=== PATIENT | female | born 1955 | race Caucasian/White ===

== ENCOUNTER 2016-12-28 06:45 | Day surgery (SDC) | payer BC ==
[~2016-12-28 06:45] MED LIST: Lactated Ringers 1,000 ML IV SCH; Lidocaine 1%/Sod Bicarbonate in NS 8.4% 1 ML Syringe IV PRN; Sodium Chloride 0.9% 10 ML Syringe FLUSH PRN
--- NOTE | 2016-12-28 07:12 | PCM.PREANE ---
Preanesthetic Assessment - Anesthesia/Transfusion/Family Hx Anesthesia History: Prior Anesthesia Without Reaction Family History of Anesthesia Reaction: No Transfusion History: No Prior Transfusion(s) - Review of Systems General: No Symptoms Pulmonary: No Symptoms Cardiovascular: No Symptoms Gastrointestinal: No symptoms Neurological: No Symptoms Other: Reports: None - Physical Assessment NPO Status Date: 12/27/16 NPO Status Time: 20:00 Pulse: 96 O2 Sat by Pulse Oximetry: 98 Respiratory Rate: 16 Blood Pressure: 158/89 Temperature: 36.6 C Height: 1.65 m Weight: 87.725 kg ASA Class: 2 Mental Status: Alert & Oriented x3 Airway Class: Mallampati = 1 Dentition: Reports: Normal Dentition Thyro-Mental Finger Breadths: 3 Mouth Opening Finger Breadths: 5 ROM/Head Extension: Full Lungs: Clear to auscultation, Normal respiratory effort Cardiovascular: Regular Rate, Regular Rhythm - Allergies Allergies/Adverse Reactions: Allergies Allergy/AdvReac Type Severity Reaction Status Date / Time codeine Allergy Chest Pain Verified 12/27/16 15:32 - Blood Blood Available: No - Acknowledgements Anesthesia Type Planned: General Anesthesia (patient expected in prone position ), MAC Pt an Appropriate Candidate for the Planned Anesthesia: Yes Alternatives and Risks of Anesthesia Discussed w Pt/Guardian: Yes Pt/Guardian Understands and Agrees with Anesthesia Plan: Yes PreAnesthesia Questionnaire HEENT History: Reports: Other (see below) Other HEENT History: wears glasses, has partial Cardiovascular History: Reports: None Respiratory History: Reports: None Gastrointestinal History: Reports: Hemorrhoids, Other (see below) Other Gastrointestinal History: rectal mass Genitourinary History: Reports: Renal calculus COUNSELOR AID History: Reports: None Musculoskeletal History: Reports: Back pain, chronic Neurological History: Reports: None Psychiatric History: Reports: None Endocrine/Metabolic History: Reports: None Hematologic History: Reports: None Immunologic History: Reports: None Oncologic (Cancer) History: Reports: None Dermatologic History: Reports: None - Past Surgical History Head Surgeries/Procedures: Reports: None GI Surgical History: Reports: Cholecystectomy, Colonoscopy Female Surgical History: Reports: Tubal ligation - SUBSTANCE USE Smoking Status *Q: Never Smoker Recreational Drug Use History: No - HOME MEDS Home Medications: Home Meds Ibuprofen 1 - 3 tab PO Q6H PRN 12/27/16 [History] - CURRENT (IN HOUSE) MEDS Current Meds: Current Medications Lactated Ringer's (Ringers, Lactated) 1,000 mls @ 125 mls/hr IV ASDIRECTED KATHRINE Stop: 12/28/16 23:00 Lidocaine/Sodium Bicarbonate (Buffered Lidocaine 1% In Ns 8.4%) 0.25 ml IV ONETIME PRN PRN Reason: Prior to IV Start Stop: 12/28/16 18:00 Sodium Chloride (Saline Flush) 10 ml FLUSH ASDIRECTED PRN PRN Reason: Keep Vein Open Stop: 12/28/16 18:00 Preanesthetic Assessment - ALLERGIES Allergies/Adverse Reactions: Allergies Allergy/AdvReac Type Severity Reaction Status Date / Time codeine Allergy Chest Pain Verified 12/27/16 15:32
[2016-12-28] MEDS ORDERED: Bupivacaine 0.5%/EPINEPHrine 1:200,000 50 ML MDV ONE (07:16)
[2016-12-28] MEDS ORDERED: Lidocaine 1% with EPINEPHrine 1:100,000 20 ML MDV ONE (07:16)
[2016-12-28] MEDS ORDERED: Ertapenem 1 GM in Sodium Chloride 0.9% 100 ML IV SCH (07:30)
[2016-12-28] MEDS ORDERED: Propofol 200 MG/20 ML SDV ONE (07:35)
[2016-12-28] MEDS ORDERED: Lidocaine 1% 2 ML ONE (07:35)
[2016-12-28] MEDS ORDERED: Midazolam 1 MG/ML 2 ML SDV ONE (07:36)
[2016-12-28] MEDS ORDERED: fentaNYL 100 MCG/2 ML SDV ONE (07:36)
[2016-12-28] MEDS ORDERED: Rocuronium 50 MG/5 ML Vial ONE (07:40)
[2016-12-28] MEDS ORDERED: Dexamethasone 4 MG/ML 5 ML MDV ONE (07:42)
[2016-12-28] MEDS ORDERED: Ketorolac 30 MG/ML SDV ONE (08:41)
--- NOTE | 2016-12-28 09:05 | PCM.OPNOTE ---
- General Post-Op/Procedure Note Date of Surgery/Procedure: 12/28/16 Operative Procedure(s): PPH -- procedure for rectal prolapse and hemorrhoids Findings: grade 4 -- 3 column internal hemorrhoids Pre Op Diagnosis: grade 4 hemorrhoids Post-Op Diagnosis: same Anesthesia Technique: General ET tube, Local Primary Surgeon: Usama Whitlock Pathology: rectal strip EBL in mLs: 2 Complications: None Condition: Good Free Text/Narrative:: After adequate LMA general anesthesia was obtained the patient was placed in the prone jackknife position with her buttocks taped. Perianal inspection revealed the obvious prolapsed 3 column grade 4 internal hemorrhoids. Digital rectal examination was performed and was remarkable for the hemorrhoids with no obvious mass lesions. Anoscopy confirmed the hemorrhoids. A perianal block was performed, with about 40 cc of Sensorcaine and lidocaine. A 2-O prolene pursestring suture was placed about 4 cm above the dentate line once adequate sphincteric relaxation had been obtained. The PPH stapler was inserted beyond the pursestring and then fired. This created a circular resection of a strip of rectal mucosa, which was retrieved. The suture line was hemostatic. The hemorrhoids were reduced and pexed higher in the rectum. Surgicel and ointment were placed in the anal canal. There were no procedural complications.
[2016-12-28] MEDS ORDERED: Neostigmine Methylsulfate 1 MG/ML 5 ML Syringe ONE (09:06)
[2016-12-28] MEDS ORDERED: diphenhydrAMINE 50 MG/ML SDV IVPUSH PRN (09:19)
[2016-12-28] MEDS ORDERED: Ondansetron 4 MG/2 ML SDV IVPUSH PRN (09:19)
[2016-12-28] MEDS ORDERED: fentaNYL 100 MCG/2 ML SDV IVPUSH PRN (09:19)
--- NOTE | 2016-12-28 09:21 | PCM.POSTAN ---
POST ANESTHESIA ASSESSMENT - MENTAL STATUS Mental Status: alert - VITAL SIGNS Pulse Rate: 94 SaO2: 96 Resp Rate: 13 Blood Pressure: 107/70 Temperature: 36.1 C - RESPIRATORY Respiratory Status: respiratory rate WNL, airway patent, O2 saturation stable - CARDIOVASCULAR CV Status: pulse rate WNL, blood pressure stable - GASTROINTESTINAL GI Status: no symptoms - PAIN Pain Score: 0 - POST OP HYDRATION Hydration Status: adequate & stable
[2016-12-28 10:05] VITALS: BP 117/69
[2016-12-28] MEDS ORDERED: Meperidine PF 50 MG/ML Syringe IVPUSH PRN (10:20)
--- NOTE | 2016-12-28 11:34 | PCM48HPAN ---
Post Anesthesia Note - EVALUATION WITHIN 48HRS OF ANESTHETIC Vital Signs in Normal Range: Yes Patient Participated in Evaluation: Yes Respiratory Function Stable: Yes Airway Patent: Yes Cardiovascular Function Stable: Yes Hydration Status Stable: Yes Pain Control Satisfactory: Yes Nausea and Vomiting Control Satisfactory: Yes Mental Status Recovered: Yes - COMMENTS/OBSERVATIONS Free Text/Narrative:: Received report from pacu/phase II RN that patient was stable and ready for discharge.
== END 2016-12-28 10:15 | disposition home or self-care (01) ==
LOC: JD.SDS 06:45
PROVIDERS: ATTEND Surgery
DX: K64.8 Other hemorrhoids (principal); K62.89 Other specified diseases of anus and rectum; Z88.5 Allergy status to narcotic agent; Z79.899 Other long term (current) drug therapy; Z87.442 Personal history of urinary calculi; Z90.49 Acquired absence of other specified parts of digestive tract; Z98.51 Tubal ligation status
CPT/HCPCS: 46947; 88304; A9270; J1100; J1335; J1885; J2250; J2710; J3010; J7030; J7120; 00902; J2704